=== PATIENT | male | born 1945 | race African-American/Black ===

== ENCOUNTER 2019-05-20 02:40 | Emergency (ER) | payer MEDICARE, MEDICAID ==
[~2019-05-20] VITALS: Ht 185.4 cm; Wt 98.9 kg
--- NOTE | 2019-05-20 02:40 | NUR ---
Arrival: 73 year old male ambulates into ER /o inability to urinate.
[2019-05-20 02:59] VITALS: BP 173/89
--- NOTE | 2019-05-20 03:08 | ER.PDOC ---
General Chief Complaint: Male Stated Complaint: MALE Time seen by MD: 03:04 Source: patient Exam Limitations: no limitations History of Present Illness Initial Comments After having sex with he urinates blood with clots, since about three hours ago he cannot urinate Timing/Duration: this evening Severity/Quality: severe, burning Associated Symptoms: Hesitancy, Small amounts Sexual History: Non-contributory Prior symptoms/Treatment: Similar symptoms previous Past Medical History Surgical History: back, cholecystectomy, knee, shoulder, other Social History Smoking: greater than 1 pack/day Alcohol Use: occassionally Drug Use: none Review of Systems Genitourinary: see HPI All Other Systems: Reviewed and Negative Physical Exam General Appearance: No Apparent Distress, WD/WN EENT: eyes nml inspection, nml ENT inspection, pharynx nml Neck: nml inspection, non-tender Cardiovascular/Respiratory: Regular Rate, Rhythm, No M/R/G, Normal Peripheral Pulses, No JVD, Normal Breath Sounds, No Respiratory Distress Abdomen: Normal Bowel Sounds, Non Tender, Soft, No Organomegaly, No Pulsatile Mass Male Genitals: Normal Genitalia, Bleeding Back: nml inspection Extremities: Normal Range of Motion, Non-Tender, Normal Inspection, No Pedal Edema, No Calf Tenderness, Normal Capillary Refill 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: site 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-XII NML as Tested, No Motor/Sensory Deficits, Alert, Normal Mood/Affect, Oriented x 3 Skin: Normal Color, Warm/Dry Lymphatic: No Adenopathy Results/Orders Results/Orders Orders - DELIA MITCHELL MD Place Steven Catheter (05/20/19 03:04) Vital Signs Date Time Temp Pulse Resp B/P (MAP) Pulse Ox O2 Delivery O2 Flow Rate FiO2 05/20/19 02:59 98.2 82 20 173/89 (117) 100 Room Air 05/20/19 02:59 98.2 82 20 05/20/19 02:59 98.2 82 20 100 Room Air Departure Time of Disposition: 03:09 Disposition: 01 HOME, SELF-CARE Impression: Primary Impression: Retention of urine Additional Impression: Hematuria Condition: Stable Patient Instructions: Urinary Retention, Acute, Male Referrals: PCP,UNKNOWN (PCP) PRIMARY CARE PROVIDER KARIS OCAMPO MD Duration or Time Spent with Pa: 15 Problem Qualifiers DELIA MITCHELL MD May 20, 2019 03:08
[2019-05-20 03:58] LABS: BILIRUBIN,URINE NEGATIVE (NEGATIVE)
[2019-05-20 04:17] LABS: APPEARANCE,URINE CLOUDY (CLEAR); UA COLOR RED (YELLOW)
== END 2019-05-20 03:30 | disposition home or self-care (01) ==
LOC: ER 02:40
DX: R33.9 Retention of urine, unspecified (principal); R31.9 Hematuria, unspecified; F17.210 Nicotine dependence, cigarettes, uncomplicated; Z90.49 Acquired absence of other specified parts of digestive tract
CPT/HCPCS: 51702; 81000; 87086; 99284; A4338

== ENCOUNTER 2019-05-23 01:11 | Emergency (ER) | payer MEDICARE, MEDICAID ==
[~2019-05-23] VITALS: Ht 182.9 cm; Wt 98.9 kg
[2019-05-23 01:17] VITALS: BP 154/95
--- NOTE | 2019-05-23 01:17 | NUR ---
ARRIVAL PATIENT PRESENTS WITH COMPLAINTS OF CATHETER PROBLEMS AND URINARY RETENTION, HEMATURIA AND "BLOOD CLOTS". PATIENT AND HIS REPORT THAT HE WAS SEEN HERE ON SUNDAY AND DISCHARGED WITH CATHETER AND HAS AN APPOINTMENT TO FOLLOW UP WITH THE UROLOGIST ON SUNDAY. PATIENT REPORTS PAIN OF 10/10 AT THIS TIME. PATIENT AMBULATORY WITH STEADY GAIT. VSS. BETSY MD NOTIFIED.
[2019-05-23 01:56] LABS: BASOPHIL % 0.1 % (0.0-0.2); EOSINOPHIL # 0.2 10^3/uL (0.0-0.2); EOSINOPHIL % 2.4 % (0.0-5.0); HEMOGLOBIN 13.8 g/dL (13.9-16.3); LYMPHOCYTES # 1.7 10^3/uL (1.0-4.8); MEAN CELL HGB 30.5 pg (26-34); MEAN CELL HGB CONCENTRATION 33.6 g/dL (33-37); MEAN CORP VOLUME 90.7 fL (78-100); MEAN PLATELET VOLUME 9.7 fL (7.8-11.0); MONOCYTES # 0.6 10^3/uL (0.3-0.8); MONOCYTES % 7.8 % (5.0-12.0); NEUTROPHIL # 4.7 10^3/uL (1.8-7.7); NEUTROPHILS % 66.3 % (41.0-85.0); WHITE BLOOD CELL 7.2 10^3/uL (4.5-11.0)
--- NOTE | 2019-05-23 02:09 | NUR ---
RADIOLOGY PATIENT IS BEING TRANSPORTED TO RADIOLOGY. NO SIGNS OF DISTRESS NOTED.
--- NOTE | 2019-05-23 02:09 | ER.PDOC ---
General Chief Complaint: Male Stated Complaint: MALE Time seen by MD: 01:35 Source: patient Exam Limitations: no limitations History of Present Illness Initial Comments Pt c/o gross hematuria. States he has history of same over course of 40 years, typically has occurred after sexual intercourse. Has never occurred except after intercourse. He would pass several blood clots in his urine and then it would clear up. Full workup including cystoscopy in late 80's without defin itive diagnosis. Same scenario occurred 4 days ago but at that time he experienced urinary obstruction, presented to this ER and Steven placed. Has continued to pass grossly bloody urine since. This afternoon, he passed several blood clots around the catheter, has had minimal urine in the bag. Returns to ER due to concern that catheter is obstructed. Denies pain at this time. Timing/Duration: other (above) Severity/Quality: moderate Location: other (No pain) Associated Symptoms: Retention, Hematuria, Blood when ejaculates Prior symptoms/Treatment: Similar symptoms previous Past Medical History Medical History: other (post-coital hematuria-recurrent) Surgical History: back, cholecystectomy, knee, shoulder, other Social History Smoking: less than 1 pack/day Alcohol Use: none Drug Use: none Review of Systems Constitutional: no symptoms reported EENTM: no symptoms reported Respiratory: no symptoms reported Cardiovascular: no symptoms reported Gastrointestinal: no symptoms reported Genitourinary: see HPI Musculoskeletal: no symptoms reported Skin: no symptoms reported Psychiatric/Neurological: no symptoms reported Endocrine: no symptoms reported Hematologic/Lymphatic: no symptoms reported Physical Exam General Appearance: No Apparent Distress, WD/WN EENT: eyes nml inspection, nml ENT inspection, pharynx nml Neck: nml inspection, non-tender Cardiovascular/Respiratory: Regular Rate, Rhythm, No M/R/G, Normal Peripheral Pulses, No JVD, Normal Breath Sounds, No Respiratory Distress Abdomen: Normal Bowel Sounds, Non Tender, Soft, No Organomegaly, No Pulsatile Mass Rectal: Normal Exam Male Genitals: Normal Genitalia, Other (Catheter in place, minimal bloody urine in bag with clots) Back: nml inspection Extremities: Normal Range of Motion, Non-Tender, Normal Inspection, No Pedal Edema, No Calf Tenderness, Normal Capillary Refill 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: 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 NML as Tested, No Motor/Sensory Deficits, Alert, Normal Mood/Affect, Oriented x 3 Skin: Normal Color, Warm/Dry Lymphatic: No Adenopathy Results/Orders Results/Orders Orders - ANMOL MEYER MD Cbc With Auto Diff (05/23/19 01:46) Comprehensive Metabolic Panel (05/23/19 01:46) Ct Abd/Pel With Iv Contrast (05/23/19 01:46) Saline Lock (05/23/19 01:46) Vital Signs Date Time Temp Pulse Resp B/P (MAP) Pulse Ox O2 Delivery O2 Flow Rate FiO2 05/23/19 01:17 98.0 87 18 98 Room Air 05/23/19 01:17 98.0 87 18 154/95 (114) 98 Room Air 05/23/19 01:17 98.0 87 18 05/20/19 02:59 82 Laboratory Tests Test 05/23/19 01:45 White Blood Count 7.2 10^3/uL (4.5-11.0) Red Blood Count 4.53 10^6/uL (4.50-5.90) Hemoglobin 13.8 g/dL (13.9-16.3) L Hematocrit 41.1 % (37.0-53.0) Mean Corpuscular Volume 90.7 fL (78-100) Mean Corpuscular Hemoglobin 30.5 pg (26-34) Mean Corpuscular Hemoglobin Concent 33.6 g/dL (33-37) Red Cell Distribution Width 15.0 % (11.5-14.5) H Platelet Count 222 10^3/uL (150-400) Mean Platelet Volume 9.7 fL (7.8-11.0) Neutrophils (%) (Auto) 66.3 % (41.0-85.0) Lymphocytes (%) (Auto) 23.0 % (24.0-44.0) L Monocytes (%) (Auto) 7.8 % (5.0-12.0) Neutrophils # (Auto) 4.7 10^3/uL (1.8-7.7) Lymphocytes # (Auto) 1.7 10^3/uL (1.0-4.8) Monocytes # (Auto) 0.6 10^3/uL (0.3-0.8) Absolute Immature Granulocyte (auto 0.03 10^3 u/L (0-2) Immature Granulocytes % 0.40 % (0.00-0.50) Eosinophils % 2.4 % (0.0-5.0) Basophils % 0.1 % (0.0-0.2) Basophils # 0.0 10^3/uL (0.0-0.1) Eosinophil Count 0.2 10^3/uL (0.0-0.2) Sodium Level 142 mmol/L (132-145) Potassium Level 3.8 mmol/L (3.6-5.2) Chloride Level 108.0 mmol/L (96-109) Carbon Dioxide Level 23.2 mmol/L (20.0-32) Anion Gap 14.6 Blood Urea Nitrogen 14 mg/dL (7-18) Creatinine 0.98 mg/dL (0.59-1.40) Estimated GFR () 90.7 (>/=60) BUN/Creatinine Ratio 14.0 Glucose Level 123 mg/dL (70-110) H Calcium Level 8.8 mg/dL (8.4-10.5) Total Bilirubin 0.4 mg/dL (0.2-1.0) Aspartate Amino Transferase (AST) 30 U/L (0-35) Alanine Aminotransferase (ALT) 26 U/L (12-78) Alkaline Phosphatase 101 U/L (50-136) Total Protein 8.2 g/dL (6.4-8.2) Albumin 2.7 g/dL (3.4-5.0) L Globulin 5.5 Progress Progress Steven dc--pt passed large blood clot with urine. No pain EKG/XRAY/CT/US CT Comments: Increased density material in bladder c/w blood and/or mass Departure Time of Disposition: 02:50 Disposition: 01 HOME, SELF-CARE Impression: Primary Impression: Hematuria of unknown cause Condition: Stable Referrals: PCP,UNKNOWN (PCP) PRIMARY CARE PROVIDER Additional Instructions: Keep appt as scheduled with Dr. Vines. Return for inability to void. Duration or Time Spent with Pa: 25 ANMOL MEYER MD May 23, 2019 02:09
[2019-05-23 02:14] LABS: CALCIUM 8.8 mg/dL (8.4-10.5); CARBON DIOXIDE 23.2 mmol/L (20.0-32)
[2019-05-23 02:15] VITALS: BP 133/81
--- NOTE | 2019-05-23 02:21 | NUR ---
RADIOLOGY PATIENT BACK FROM RADIOLOGY. NO SIGNS OF DISTRESS NOTED.
--- NOTE | 2019-05-23 02:27 | NUR ---
ALBERTS CATHETER ALBERTS CATHETER REMOVED PER REQUEST OF DR MEEYR. PATIENT TOLERATED WELL.
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
--- NOTE | 2019-05-23 02:58 | NUR ---
IV IV DISCONTINUED WITH TIP INTACT. PRESSURE DRESSING APPLIED.
[2019-05-23 03:03] VITALS: BP 133/81
== END 2019-05-23 02:59 | disposition home or self-care (01) ==
LOC: ER 01:11
DX: R31.9 Hematuria, unspecified (principal); R33.9 Retention of urine, unspecified; F17.200 Nicotine dependence, unspecified, uncomplicated; Z90.49 Acquired absence of other specified parts of digestive tract; Z98.890 Other specified postprocedural states
CPT/HCPCS: 36415; 74177; 80053; 85025; 99285; Q9965